=== PATIENT | female | born 1960 | race Caucasian/White ===

== ENCOUNTER 2018-02-01 20:32 | Emergency (ER) | payer BC, OTHER ==
[~2018-02-01] VITALS: Ht 157.5 cm; Wt 90.7 kg
[2018-02-01 22:47] VITALS: BP 160/83
== END 2018-02-01 22:47 | disposition home or self-care (01) ==
LOC: ER 20:32
DX: M25.552 Pain in left hip (principal); M54.5 Low back pain; M25.569 Pain in unspecified knee; R20.2 Paresthesia of skin

== ENCOUNTER → 2018-02-07 | Outpatient (CLI) | payer BC, OTHER | LOC: RAD 15:20 | DX: M47.896 Other spondylosis, lumbar region (principal) ==